=== PATIENT | male | born 1990 | race Caucasian/White ===

== ENCOUNTER 2017-09-04 14:44 | Observation (INO) ==
[~2017-09-04 14:44] MED LIST: Glycopyrrolate Inj 1 MG/5 ML Syringe IV.PUSH ONE; Ketorolac Inj 30 MG/ML (IVP) Vial IV.PUSH ONE; Lidocaine PF 1% Inj 5 ML Syringe INFILTRATN ONE; Neostigmine Inj 5 MG/5 ML Syringe IV.PUSH ONE
[2017-09-04] MEDS ORDERED: Bupivacaine/Epinephrine Inj 0.25% 50 ML Vial ONE (19:59)
--- NOTE | 2017-09-04 21:10 | P.HPGS ---
History of Present Illness Primary Care Physician: UNKNOWN History of Present Illness: Patient is a 27-year-old male who began to have abdominal pain yesterday that he was in the periumbilical region. This gradually migrated to the right lower quadrant. The patient had emesis today 1. No change in bowel habits. He denies fever chills. Patient has no previous history of pain of this nature. - Diagnosis (1) Acute appendicitis Inpatient Certification: I certify that the inpatient services were ordered in accordance with Medicare regulations governing the order. This includes certification that hospital inpatient services are reasonable and necessary and in the case of services not specified as inpatient-only under 42 CFR 419.22(n), that they are appropriately provided as inpatient services in accordance to with the 2-midnight benchmark under 43 CFR 412.3(e) Plans for Post Hospital Care: Home Review of Systems All other systems reviewed negative except as stated in HPI [facility] - History History Provided By: Patient - Medical History Medical History: Medical History (Last Updated 09/04/17 @ 15:43 by Angela Varma RN) Patient denies medical problems - Surgical History Surgical History: Surgical History (Last Updated 09/04/17 @ 15:43 by Angela Varma RN) No history of previous surgery - Tobacco History Second Hand Smoke Exposure: Yes Smoking Status: Heavy tobacco smoker Tobacco Type: Cigarettes - Alcohol History How Often Do You Have a Drink Containing Alcohol: Monthly or less - Substance Use History Substance History: Active Abuse Medications and Allergies Allergies Allergy/AdvReac Type Severity Reaction Status Date / Time No Known Allergies Allergy Verified 09/04/17 15:40 Home Medications Medication Instructions Recorded Confirmed Type No Known Home Medications 09/04/17 09/04/17 History Exam Vital signs: Vital Signs 09/04/17 20:41 Temperature 98.2 F Pulse Rate 58 L Respiratory Rate 18 Blood Pressure 133/74 Pulse Oximetry 98 - Constitutional no acute distress - Routine HEENT Exam Head: Present: normocephalic, atraumatic Eye: Present: EOMI - Routine Neck Exam Present: supple - Routine Respiratory Exam Present: CTA bilaterally - Routine Cardiovascular Exam Present: RRR - Routine Abdominal Exam Present: soft, tenderness, guarding (RLQ) Results - Results CT scan - abdomen: report reviewed (Shows acute appendicitis without perforation ) Caprini VTE Risk Assessment Caprini VTE Risk Assessment: No/Low Risk (score <= 1) Caprini Risk Assessment Model: Point Value = 1 Point Value = 2 Point Value = 3 Point Value = 5 Age 41-60 Minor surgery BMI > 25 kg/m2 Swollen legs Varicose veins or History of unexplained or recurrent spontaneous Oral contraceptives or hormone replacement Sepsis (< 1 month) Serious lung disease, including pneumonia (< 1 month) Abnormal pulmonary function Acute myocardial infarction Congestive heart failure (< 1 month) History of inflammatory bowel disease Medical patient at bed rest Age 61-74 Arthroscopic surgery Major open surgery (> 45 min) Laparoscopic surgery (> 45 min) Malignancy Confined to bed (> 72 hours) Immobilizing plaster cast Central venous access Age >= 75 History of VTE Family history of VTE Factor V Leiden Prothrombin [id number] Lupus anticoagulant Anticardiolipin antibodies Elevated serum homocysteine Heparin-induced thrombocytopenia Other congenital or acquired thrombophilia Stroke (< 1 month) Elective arthroplasty Hip, pelvis, or leg fracture Acute spinal cord injury (< 1 month) Prophylaxis Regimen: Total Risk Factor Score Risk Level Prophylaxis Regimen 0-1 Low Early ambulation 2 Moderate Order ONE of the following: *Sequential Compression Device (SCD) *Heparin 5000 units SQ BID 3-4 Higher Order ONE of the following medications: *Heparin 5000 units SQ TID *Enoxaparin/Lovenox 40 mg SQ daily (WT < 150 kg, CrCl > 30 mL/min) *Enoxaparin/Lovenox 30 mg SQ daily (WT < 150 kg, CrCl > 10-29 mL/min) *Enoxaparin/Lovenox 30 mg SQ BID (WT < 150 kg, CrCl > 30 mL/min) AND/OR *Sequential Compression Device (SCD) 5 or more Highest Order ONE of the following medications: *Heparin 5000 units SQ TID (Preferred with Epidurals) *Enoxaparin/Lovenox 40 mg SQ daily (WT < 150 kg, CrCl > 30 mL/min) *Enoxaparin/Lovenox 30 mg SQ daily (WT < 150 kg, CrCl > 10-29 mL/min) *Enoxaparin/Lovenox 30 mg SQ BID (WT < 150 kg, CrCl > 30 mL/min) AND *Sequential Compression Device (SCD) Assessment and Plan - Assessment (1) Acute appendicitis Code(s): K35.80 - Unspecified acute appendicitis Status: Acute Plan: Laparoscopic appendectomy possible open appendectomy. I have discussed risks of the procedure with the patient with his parents in attendance. Risks discussed include but are not limited to: Bleeding, infection, leakage, adhesion formation, need for drainage, need for reoperation. I discussed remedies, consequences, alternatives, and convalescence; he vocalizes understanding as well as his parents. They agree to proceed with surgery. We did discuss nonoperative management in children but that there is no significant data long-term on adults yet. - Attending Attestation I attest that I had a [id number] encounter with the patient on the same day, and personally performed and documented my assessment and findings in the medical record. The following services were provided during this hospital visit: Chart data review, vital sign assessments/reviewing monitor data Review of consultation notes if present Medication orders/review and/or management Ordering and/or reviewing lab tests Ordering and/or interpreting/reviewing x-rays and/or diagnostic studies Care of the patient and discussion of the patient with the care team Documentation time To help prompt me to consider important information that might be impacting today's encounter and assessment, Information from prior notes written by myself or my colleagues may have been "brought forward/copy and pasted" into today's note.
[2017-09-04] MEDS ORDERED: Chlorhexidine Gluconate 2% 1 Pack (2 Cloths) TOPICAL SCH (21:45)
[2017-09-04] MEDS ORDERED: Metoprolol Tartrate 25 MG Tablet PO SCH (21:45)
[2017-09-04] MEDS ORDERED: Sodium Chlor 0.9% Inj 500 ML IV.SIG SCH (22:00)
--- NOTE | 2017-09-04 22:23 | P.OP ---
- Preoperative Diagnosis (1) Acute appendicitis - Postoperative Diagnosis (1) Acute appendicitis without peritonitis Date of procedure: 09/04/17 Procedure: Laparoscopic appendectomy Anesthesia: CARLOS Surgeon: Palmer Simpson MD Criminal Researcher: Gianni Rubio CFA Estimated blood loss (mL): 20 IV fluids (mL): 400 Pathology: other (Appendix to pathology) Operation and Findings: The patient was taken to the operating room and placed on the operating table in the supine position. After an adequate level of general endotracheal anesthesia was achieved, the abdomen was shaved, prepped and draped. Timeout was taken, confirming the correct patient, site, and procedure to be performed. Skin and subcutaneous tissue was infiltrated with local anesthetic and incision made in the umbilicus and carried through the fascia sharply. The peritoneal cavity was directly visualized. A 12 mm balloon trocar was inserted and the balloon inflated. The abdomen was insufflated. The patient was placed in Trendelenburg position. Two 5 mm trocars were then placed, with the first in the right lower quadrant and the second in the suprapubic region. Both entered the abdominal cavity under direct vision uneventfully. The base of the appendix was seen coming off of the cecum. The appendix then immediately dove into the retroperitoneum and coursed back up toward the hepatic flexure. This was taken down from the surrounding retroperitoneal tissue with the harmonic scalpel. The appendix was mobilized up toward the hepatic flexure and the tip was identified. This was freed up and dissection carried back to the base of the appendix. A 0 PDS Endoloop was slipped over the appendix and cinched down at the base of the appendix near the cecum. The appendix was divided one cm distal to this with the harmonic scalpel and placed into an Endo Catch device. While observing via the right lower quadrant trocar site, the appendix was removed via the umbilical port and passed off the table. The right lower quadrant was once again revisualized, irrigated and aspirated. No bleeding was noted from the dissection site. The pelvis was reexamined and seen to be clean and dry as well. With hemostasis assured, insufflation was discontinued. The 5 mm trocars were removed under direct vision. No bleeding was noted from the trocar sites. The laparoscope and umbilical port were removed. The fascia was closed in the umbilicus with 0 Vicryl suture in both a simple interrupted and [id number] fashion. The remaining local anesthetic was injected into the trocar sites. The skin was closed at all 3 trocar sites with 4-0 Vicryl in an interrupted buried fashion. The trocar sites were dressed with Steri-Strips. Patient was extubated and taken back to the recovery room in stable condition. He tolerated the procedure well. Sponge and needle counts were reported to be correct.
[2017-09-04] MEDS ORDERED: Bisacodyl 10 MG Supp RECTAL PRN (22:24)
[2017-09-04] MEDS ORDERED: Post-op Orders (for Pharmacy) OTHER ONE (22:24)
[2017-09-04] MEDS ORDERED: fentaNYL Citrate Inj 100 MCG/2 ML Ampul ONE (22:25)
[2017-09-04] MEDS ORDERED: Morphine Inj 4 MG/ML Vial IV.PUSH PRN (22:45)
[2017-09-05] MEDS ORDERED: Senna/Docusate Sodium 8.6/50 MG Tablet PO SCH (09:00)
[2017-09-05 09:37] VITALS: BP 122/77; PULSE 64; RESP 16; TEMP 97.9; O2SAT 98
--- NOTE | 2017-09-05 10:44 | P.DS ---
Date of admission: 09/04/17 20:20 Primary care physician: UNKNOWN Attending physician on discharge: Palmer Simpson Brief History from admission: Patient is a 27-year-old male who began to have abdominal pain yesterday that he was in the periumbilical region. This gradually migrated to the right lower quadrant. The patient had emesis today 1. No change in bowel habits. He denies fever chills. Patient has no previous history of pain of this nature. DS: Diagnosis - Discharge Diagnosis (1) Acute appendicitis without peritonitis Status: Acute DS: Medications - Discharge Medications Prescriptions: hydrocodone-acetaminophen 1 tab PO Q4H PRN #15 tab PRN Reason: acute post op pain DS: Summary Hospital Course: This is a 27 year old male POD1 laparoscopic appendectomy. The patient was able to tolerate a regular diet. The patient's pain was controlled using oral pain medications. He will follow up in the office. - Time Spent with Patient Total time spent providing and/or coordinating discharge services: Less than 30 minutes - Quality: VTE Deep Vein Thrombosis/Pulmonary Embolism Present on Admission: No Exam Vital signs: Vital Signs 09/04/17 20:41 09/04/17 22:22 09/04/17 22:30 Temperature 98.2 F 98.3 F Pulse Rate 58 L 95 H 80 Respiratory Rate 18 28 H 23 Blood Pressure 133/74 122/73 122/63 Pulse Oximetry 98 09/04/17 22:45 09/04/17 23:00 09/05/17 00:37 Temperature 98 F 97.8 F Pulse Rate 71 68 71 Respiratory Rate 17 18 17 Blood Pressure 117/62 115/63 123/71 Pulse Oximetry 97 99 09/05/17 04:40 09/05/17 08:00 Temperature 97.7 F 97.9 F Pulse Rate 90 64 Respiratory Rate 18 16 Blood Pressure 124/63 122/77 Pulse Oximetry 95 98 Intake & Output 09/04/17 09/05/17 09/05/17 18:59 06:59 18:59 Intake Total 980 / 980 1000 / 1000 Output Total 520 / 520 Balance 460 / 460 1000 / 1000 Weight 80 kg Intake: IV 100 / 100 1000 / 1000 LR 1000 mL Inj 1,000 ML @ 100 1000 / 1000 mls/hr IV.CONT .Q10H [facility] Rx#: [id number] Ofirmev Inj 1,000 mg In 100 ml 100 / 100 @ 0 mls/hr IV.SIG .STK-MED ONE Rx#:[id number] Oral 480 / 480 Anesthesia Amount 400 / 400 Output: Urine 500 / 500 Estimated Blood Loss 20 / 20 Other: Weight On Admission 82 kg Narrative: Alert and awake Cardio: RRR Resp: CTAB Abd: lap sites c/d/i; minimal post op tenderness Results Procedures completed during hospitalization: laparoscopic appendectomy Pending studies at discharge: Pending at discharge 09/04/17 07:25 Surgical [PTH] Routine Discharge Plan - Discharge Disposition Patient Disposition: Discharge Home - Discharge Condition Condition: Good - Discharge Order Discharge Orders: Discharge Order (Routine); Ordered 09/05/17 Ordered By: Anahi Le - Discharge Details Anticipated Discharge Date: 09/05/17 Discharge Comment: rx on chart - Physicians Team Primary Care Provider: UNKNOWN, Attending Provider: Palmer Simpson - Rxs /Orders / Referrals /Forms Prescriptions: New hydrocodone-acetaminophen 5-325 mg Tablet 1 tab PO Q4H PRN (Reason: acute post op pain) Qty: 15 RF: 0 No Action No Known Home Medications Referrals: Palmer Simpson MD [GENERAL SURGERY] - See Instructions (Follow up appointment made for MondaySeptember 11 at 3:30PM.) UNKNOWN, [Primary Care Provider] - See Instructions (*[facility]* [address] [place] [address] [phone] -Please call the morning of you would like to be seen. [facility] offers same day appointment*) Forms: Work Release/Restrictions - Discharge Instructions Patient Printed Instructions: Hydrocodone/Acetaminophen (By mouth), Appendicitis (DC), Laparoscopic Appendectomy (DC)
== END 2017-09-05 12:24 | disposition home or self-care (01) ==
LOC: NEDDLT 20:10 → N07 20:10 → INTOOBSV 20:20 → N07 20:20
PROVIDERS: ADMIT Surgery Trauma Surgery; ATTEND Surgery Trauma Surgery
PROC: LAPAPPY (ICD-10-PCS; 2017-09-04 21:06)